=== PATIENT | male | born 1960 ===

== ENCOUNTER 2023-04-06 19:38 | Emergency (ER) | payer OTHER ==
[~2023-04-06] VITALS: Ht 175.3 cm; Wt 90.3 kg
[~2023-04-06 19:38] MED LIST: ALBU90OI INH; BENZ100A PO; IMITREX50 M2 PO; OMEPRAZOLE DR 40 MG; PRED20 PO; TRAZ50 PO
[2023-04-06 20:12] LABS: BASOPHILS ABSOLUTE AUTO 0.04 K/mm3 (0.00-0.23); BASOPHILS PERCENT AUTO 1 % (0-2); EOSINOPHILS ABSOLUTE AUTO 0.29 K/mm3 (0.00-0.68); EOSINOPHILS PERCENT AUTO 4 % (0-6); Hematocrit 43.8 % (37.0-53.0); Hemoglobin 14.5 g/dL (13.5-17.5); IMMATURE GRAN ABSOLUTE AUTO 0.01 K/mm3 (0.00-0.10); IMMATURE GRAN PERCENT AUTO 0 % (0-1); LYMPHOCYTES ABSOLUTE AUTO 2.51 K/mm3 (0.84-5.20); LYMPHOCYTES PERCENT AUTO 35 % (21-46); MONOCYTES PERCENT AUTO 8 % (4-13); Mean Corpuscular HGB 27.8 pg (26.0-34.0); Mean Corpuscular HGB Conc 33.1 g/dL (31.5-36.5); Mean Corpuscular Volume 84 fL (80-100); Mean Platelet Volume 9.1 fL (9.1-12.4); NEUTROPHILS ABSOLUTE AUTO 3.74 K/mm3 (1.96-9.15); NEUTROPHILS PERCENT AUTO 52 % (41-73); Platelet Count 244 K/mm3 (150-400); RDW Coefficient Variation 12.9 % (11.7-14.2); RDW Standard Deviation 39.3 fL (35.1-46.3); Red Blood Cell Count 5.21 M/mm3 (4.30-5.90); White Blood Cell Count 7.19 K/mm3 (4.00-11.30)
[2023-04-06 20:42] LABS: Albumin, Blood 3.5 g/dL (3.4-5.0); Bilirubin, Total 0.7 mg/dL (0.1-1.0); Bun/Creatinine Ratio 24.1 (12.0-20.0); Calcium, Blood 8.9 mg/dL (8.5-10.1); Creatinine, Blood 0.87 mg/dL (0.60-1.20); Globulin, Blood 3.6 g/dL (2.2-4.0); Potassium, Blood 3.9 mmol/L (3.5-5.5); Total Protein, Blood 7.1 g/dL (6.4-8.2)
[2023-04-06] MEDS ORDERED: Amitriptyline H10 MG PO (22:24)
[2023-04-06 23:15] VITALS: BP 130/87
[2023-04-06] MEDS ORDERED: ALMACONE SUSPE355 ML PO (23:18)
[2023-04-06] MEDS ORDERED: FAMO20 PO (23:18)
== END 2023-04-06 23:26 | disposition home or self-care (01) ==
LOC: ER 19:38
PROVIDERS: Emergency Medicine
DX: R07.89 Other chest pain (principal); G43.909 Migraine, unspecified, not intractable, without status migrainosus; Z79.51 Long term (current) use of inhaled steroids; Z79.899 Other long term (current) drug therapy
CPT/HCPCS: 71046; 80053; 84484; 85025; 93005; 93010; 99285-25

== ENCOUNTER 2023-09-19 08:55 | Observation (INO) | payer OTHER ==
[~2023-09-19] VITALS: Ht 175.3 cm; Wt 87.6 kg
[~2023-09-19 08:55] MED LIST changes: +ALMACONE SUSPE355 ML PO; +Amitriptyline H10 MG PO; +FAMO20 PO
[2023-09-19 09:45] LABS: BASOPHILS ABSOLUTE AUTO 0.03 K/mm3 (0.00-0.23); BASOPHILS PERCENT AUTO 1 % (0-2); EOSINOPHILS ABSOLUTE AUTO 0.16 K/mm3 (0.00-0.68); EOSINOPHILS PERCENT AUTO 3 % (0-6); Hematocrit 44.3 % (37.0-53.0); Hemoglobin 14.6 g/dL (13.5-17.5); IMMATURE GRAN ABSOLUTE AUTO 0.01 K/mm3 (0.00-0.10); IMMATURE GRAN PERCENT AUTO 0 % (0-1); LYMPHOCYTES ABSOLUTE AUTO 2.07 K/mm3 (0.84-5.20); LYMPHOCYTES PERCENT AUTO 36 % (21-46); MONOCYTES ABSOLUTE AUTO 0.47 K/mm3 (0.16-1.47); MONOCYTES PERCENT AUTO 8 % (4-13); Mean Corpuscular HGB 27.6 pg (26.0-34.0); Mean Corpuscular Volume 84 fL (80-100); Mean Platelet Volume 8.7 fL (9.1-12.4); NEUTROPHILS ABSOLUTE AUTO 3.06 K/mm3 (1.96-9.15); NEUTROPHILS PERCENT AUTO 53 % (41-73); Platelet Count 220 K/mm3 (150-400); RDW Coefficient Variation 12.8 % (11.7-14.2); RDW Standard Deviation 38.7 fL (35.1-46.3); Red Blood Cell Count 5.29 M/mm3 (4.30-5.90)
[2023-09-19] MEDS ORDERED: ASPI81CH PO (10:00)
[2023-09-19] MEDS ORDERED: Nitroglycerin 0.4 MG SUBL SL PRN (10:15)
[2023-09-19] MEDS ORDERED: Aspirin 81 MG Chew PO ONE (10:15)
[2023-09-19 10:33] LABS: Albumin, Blood 3.6 g/dL (3.4-5.0); Bun/Creatinine Ratio 18.9 (12.0-20.0); Calcium, Blood 9.3 mg/dL (8.5-10.1); Creatinine, Blood 0.85 mg/dL (0.60-1.20); Globulin, Blood 3.6 g/dL (2.2-4.0); Potassium, Blood 4.3 mmol/L (3.5-5.5); Total Protein, Blood 7.2 g/dL (6.4-8.2)
[2023-09-19] MEDS ORDERED: Acetaminophen 500 MG Tab PO ONE (11:25)
[2023-09-19] MEDS ORDERED: Nitroglycerin 1 INCH/GM PKT TOP ONE (12:20)
[2023-09-19] MEDS ORDERED: Amitriptyline HCl 25 MG Tab PO PRN (13:45)
[2023-09-19] MEDS ORDERED: FLU VACC QS2023-24(6MOS UP)/PF 60 MCG/0.5 ML SYRINGE IM PRN (13:45)
[2023-09-19] MEDS ORDERED: Acetaminophen 325 MG TABLET PO PRN (13:45)
[2023-09-19] MEDS ORDERED: Amitriptyline HCl 10 MG Tab PO PRN (13:50)
[2023-09-19] MEDS ORDERED: Nitroglycerin 1 INCH/GM PKT TOP SCH (14:00)
[2023-09-19] MEDS ORDERED: NS 1,000 ML IV SCH (16:15)
[2023-09-19 17:04] VITALS: BP 116/71
--- NOTE | 2023-09-19 18:22 | NUR ---
ADMIT NOTE/SHIFT SUMMARY PT ARRIVED TO PCU FROM ED VIA ED STRETCHER AT APPROX 1700. PT AMBULATED FROM STRETCHER IN HALLWAY TO PCU BED INDEPENDENTLY. A&OX4. SP02>90% ON RA. TELEMETRY SHOWS SINUS JOY, HR 50'S. PT CURRENTLY DENIES CP. NITROPASTE PLACED IN ER, ON CHEST, PER EMAR. CARDIOLOGY CONSULTED IN ER, PT TO BE NPO AT MIDNIGHT FOR ANGIO IN AM. PT ENDORSES HEADACHE 4/10. TYLENOL GIVEN IN ER. ACCOMPANIED PATIENT. AND PT ORIENTED TO ROOM, CALL LIGHT. CALL LIGHT IN REACH. PT EATING SANDWICH IN BED, WATCHING TV.
[2023-09-19 19:34] VITALS: BP 107/75
[2023-09-19 23:09] VITALS: BP 146/88
[2023-09-19 23:23] VITALS: BP 99/62
[2023-09-20 03:23] VITALS: BP 107/69
--- NOTE | 2023-09-20 04:11 | NUR ---
SHIFT SUMMARY NO ACUTE CHANGES THIS SHIFT. VSS. AXO. IN SR/SB. ON RA. CONTINENT. ONE EPISODE OF REPORTED CHEST PAIN THIS SHIFT THAT RESOLVED W/O INTERVENTION BESIDES THE TOPICAL NITRO PASTE ALREADY ORDERED. PT NPO SINCE MIDNIGHT FOR ANGIO TODAY. PT EDCATED REGARDING THIS PROCEDURE/PROTOCOL. PT RESTING FOR MAJORITY OF SHIFT.
[2023-09-20] MEDS ORDERED: Verapamil HCL 2.5 MG/ML 2ML Injection ONE (06:45)
[2023-09-20] MEDS ORDERED: NS 250 ML IV ONE (06:45)
[2023-09-20] MEDS ORDERED: Nitroglycerin 2 MG/20 ML BTL ONE (06:45)
[2023-09-20] MEDS ORDERED: NS 1,000 ML IV ONE ×2 (06:45→07:18)
--- NOTE | 2023-09-20 07:02 | NUR ---
UPDATE: ASSUMED CARE AT 0700. PT TO ANGIOGRAM AT 0700. WILL AWAIT RETURN.
[2023-09-20] MEDS ORDERED: Midazolam HCl 1MG / ML 2ML Vial ONE (07:19)
[2023-09-20] MEDS ORDERED: FentaNYL Citrate 50 MCG/ML 2 ML Injection ONE (07:19)
[2023-09-20 08:11] VITALS: BP 116/82
--- NOTE | 2023-09-20 08:19 | NUR ---
UPDATE: PT RETURNED FROM HOSPICE TEAM LEAD AT 0803. PT WITH R. RADIAL SIDE, ARMBOARD IN PLACE. OVERALL SITE C/D/I. VITAL SIGNS STABLE. THIS RN SPOKE WITH STONE ENGRAVER, NO INTERVENTIONS REQUIRED. PT ABLE TO POSSIBLE D/C THIS AFTERNOON. AT BEDSIDE AND UPDATED ON PT PLAN OF CARE.
[2023-09-20 08:38] VITALS: BP 117/81
[2023-09-20 09:00] VITALS: BP 123/77
[2023-09-20] MEDS ORDERED: Enoxaparin 40 MG/0.4 ML SYR SC SCH (09:00)
[2023-09-20] MEDS ORDERED: Isosorbide Mononitrate 30 MG TABCR PO SCH (09:00)
[2023-09-20] MEDS ORDERED: Aspirin 81 MG Chew PO SCH ×2 (09:00)
[2023-09-20] MEDS ORDERED: Atorvastatin 40 MG Tab PO SCH ×2 (09:00)
[2023-09-20] MEDS ORDERED: Metoprolol Succinate 25 MG TABCR PO SCH (09:00)
[2023-09-20 11:19] VITALS: BP 109/81
[2023-09-20] MEDS ORDERED: Isosorbide Mono30 MG PO (13:38)
[2023-09-20] MEDS ORDERED: METO25ER PO (13:38)
[2023-09-20] MEDS ORDERED: NITR.4SL SL (13:38)
--- NOTE | 2023-09-20 14:16 | NUR ---
DISCHARGE: PT D/C FROM PCU 5 VIA WHEELCHAIR. DISCHARGE INSTRUCTIONS AND EDUCATION PROVIDED TO PT AND . ALL BELONGINGS WITH PT.
== END 2023-09-20 14:16 | disposition home or self-care (01) ==
LOC: ER 08:55 → PCU 08:56
PROVIDERS: Student in an Organized Health Care Education/Training Program; ADMIT Internal Medicine
DX: I25.110 Atherosclerotic heart disease of native coronary artery with unstable angina pectoris (principal); E78.5 Hyperlipidemia, unspecified; I10 Essential (primary) hypertension; G43.909 Migraine, unspecified, not intractable, without status migrainosus; Z79.899 Other long term (current) drug therapy
CPT/HCPCS: 71046; 76937; 80053; 84484; 85025; 93005; 93010; 93306; 93454; 99152; 99153; 99285-25; A9270; C1769; C1887; C1894; G0378; J1650; J2250; J3010; J7030; J7050; Q9967

== ENCOUNTER 2023-12-05 08:46 | Emergency (ER) | payer OTHER ==
[~2023-12-05] VITALS: Ht 175.3 cm; Wt 89.8 kg
[~2023-12-05 08:46] MED LIST changes: +ASPI81CH PO; +Isosorbide Mono30 MG PO; +METO25ER PO; +NITR.4SL SL
[2023-12-05 09:39] LABS: BASOPHILS ABSOLUTE AUTO 0.04 K/mm3 (0.00-0.23); BASOPHILS PERCENT AUTO 1 % (0-2); EOSINOPHILS ABSOLUTE AUTO 0.26 K/mm3 (0.00-0.68); EOSINOPHILS PERCENT AUTO 4 % (0-6); Hematocrit 44.9 % (37.0-53.0); Hemoglobin 14.6 g/dL (13.5-17.5); IMMATURE GRAN ABSOLUTE AUTO 0.01 K/mm3 (0.00-0.10); IMMATURE GRAN PERCENT AUTO 0 % (0-1); LYMPHOCYTES ABSOLUTE AUTO 1.79 K/mm3 (0.84-5.20); LYMPHOCYTES PERCENT AUTO 30 % (21-46); MONOCYTES ABSOLUTE AUTO 0.45 K/mm3 (0.16-1.47); MONOCYTES PERCENT AUTO 8 % (4-13); Mean Corpuscular HGB 27.9 pg (26.0-34.0); Mean Corpuscular HGB Conc 32.5 g/dL (31.5-36.5); Mean Corpuscular Volume 86 fL (80-100); Mean Platelet Volume 9.4 fL (9.1-12.4); NEUTROPHILS ABSOLUTE AUTO 3.41 K/mm3 (1.96-9.15); NEUTROPHILS PERCENT AUTO 57 % (41-73); Platelet Count 237 K/mm3 (150-400); RDW Coefficient Variation 12.8 % (11.7-14.2); RDW Standard Deviation 39.9 fL (35.1-46.3); Red Blood Cell Count 5.24 M/mm3 (4.30-5.90); White Blood Cell Count 5.96 K/mm3 (4.00-11.30)
[2023-12-05 09:50] LABS: Albumin, Blood 3.8 g/dL (3.4-5.0); Albumin/Globulin Ratio 1.1 (0.8-1.8); Bilirubin, Total 1.3 mg/dL (0.1-1.0); Bun/Creatinine Ratio 21.4 (12.0-20.0); Calcium, Blood 9.6 mg/dL (8.5-10.1); Creatinine, Blood 0.84 mg/dL (0.60-1.20); Globulin, Blood 3.5 g/dL (2.2-4.0); Potassium, Blood 4.8 mmol/L (3.5-5.5); Total Protein, Blood 7.3 g/dL (6.4-8.2)
[2023-12-05] MEDS ORDERED: ROSUVASTATIN CA20 MG PO (11:29)
[2023-12-05] MEDS ORDERED: ALBUTEROL SULFATE HF (11:29)
[2023-12-05] MEDS ORDERED: METOPROLOL SUCC25 MG PO (11:29)
[2023-12-05] MEDS ORDERED: SERT20L (11:29)
[2023-12-05] MEDS ORDERED: NITROGLYCERIN (11:30)
[2023-12-05] MEDS ORDERED: ISOSORBIDE MONO30 MG PO (11:30)
[2023-12-05] MEDS ORDERED: NITROGLYCERIN0.4 M3 SL (11:30)
[2023-12-05] MEDS ORDERED: Ipratropium/Albuterol SulF 2.5-0.5MG/3 ML Amp INH ONE (12:05)
[2023-12-05] MEDS ORDERED: Ketorolac Tromethamine 30mg Vial IV ONE (12:05)
[2023-12-05] MEDS ORDERED: PredniSONE 20 MG Tab PO ONE (13:50)
[2023-12-05] MEDS ORDERED: PRED20 PO (13:52)
[2023-12-05 14:00] VITALS: BP 129/79
== END 2023-12-05 14:10 | disposition home or self-care (01) ==
LOC: ER 08:46
PROVIDERS: Student in an Organized Health Care Education/Training Program
DX: R07.9 Chest pain, unspecified (principal); J20.9 Acute bronchitis, unspecified; Z79.899 Other long term (current) drug therapy; Z79.82 Long term (current) use of aspirin; G43.909 Migraine, unspecified, not intractable, without status migrainosus
CPT/HCPCS: 71046; 80053; 83880; 84484; 85025; 93005; 93010; 94640; 94664; 96374; 99285-25; J1885; J7512